=== PATIENT | female | born 1955 | race Two or more races ===

== ENCOUNTER → 2018-03-01 09:15 | Outpatient (CLI) | payer OTHER, SELFPAY ==
[2018-03-08 13:34] LABS: HPV APTIMA, High Risk Negative (Negative); HPV Reflexed? YES, CHARGE PATIENT
== END ==
PROVIDERS: Referring Provider Obstetrics & Gynecology; Visit Provider Obstetrics & Gynecology
DX: Z12.4 Encounter for screening for malignant neoplasm of cervix (principal)
CPT/HCPCS: 87624; 88175; G0145

== ENCOUNTER → 2019-03-07 10:15 | Outpatient (CLI) | payer OTHER, SELFPAY ==
[2019-03-10 16:58] LABS: HPV Reflexed? NOT INDICATED
== END ==
PROVIDERS: Visit Provider Obstetrics & Gynecology
DX: Z12.4 Encounter for screening for malignant neoplasm of cervix (principal)
CPT/HCPCS: 88175; G0145